=== PATIENT | male | born 1955 | race American Indian/Alaskan Native ===

== ENCOUNTER 2018-09-18 01:28 | Emergency (ER) | payer OTHER ==
[2018-09-18] MEDS ORDERED: NACL 0.9% 1000 ML 1,000 ML IV ONE (01:46)
--- NOTE | 2018-09-18 01:51 | Emergency Department Report ---
ED Syncope HPI - General Chief Complaint: Alcohol Stated Complaint: ETOH Time Seen by Provider: 09/18/18 01:45 - History of Present Illness Initial Comments: 63-year-old male with history of lupus presents to the ED following syncopal episode while at a nightclub. Patient accompanied to the ER by his friend who was with him. States patient had 4 drinks tonight, one beer, one [place] and cranberry juice, and two drinks called [employer]. Friend states they were about to leave the club, when he passed out while sitting in the chair. Patient's friend states patient slid onto the floor, did not hit his head. Friends state patient was unresponsive, but breathing, immediately afterward, so EMS was called. Patient denies feeling dizzy or lightheaded prior to passing out. Also currently denies headache, chest pain, shortness of breath, nausea, abdominal pain. Precipitating Factors: Negative: nausea, rapid heart beat Context: sitting Loss of Consciousness: brief (seconds) Current Symptoms: back to normal - Related Data Allergies/Adverse Reactions: Allergies No Known Allergies Allergy (Unverified 09/18/18 02:47) ED Review of Systems ROS: Stated complaint: ETOH Other details as noted in HPI Comment: All other systems reviewed and negative Constitutional: denies: fever Respiratory: denies: shortness of breath Cardiovascular: denies: chest pain Gastrointestinal: denies: abdominal pain, vomiting Neurological: denies: headache ED Physical Exam - General Limitations: Altered Mental Status General appearance: alert, in no apparent distress, appears intoxicated - Head Head exam: Present: atraumatic, normocephalic - Eye Eye exam: Present: normal appearance, PERRL, EOMI - ENT ENT exam: Present: mucous membranes moist - Neck Neck exam: Present: normal inspection - Respiratory Respiratory exam: Present: normal lung sounds bilaterally. Absent: respiratory distress - Cardiovascular Cardiovascular Exam: Present: regular rate, normal rhythm - GI/Abdominal GI/Abdominal exam: Present: soft. Absent: distended, tenderness - Extremities Exam Extremities exam: Present: normal inspection - Neurological Exam Neurological exam: Present: alert, oriented X3, CN II-XII intact. Absent: motor sensory deficit - Psychiatric Psychiatric exam: Present: normal affect, normal mood - Skin Skin exam: Present: warm, dry, intact, normal color ED Course Vital Signs 09/18/18 09/18/1819 01:40 01:44 01:46 Temperature 97.9 F Pulse Rate 87 90 Respiratory 20 24 Rate Blood Pressure 128/53 Blood Pressure 119/53 [Right] O2 Sat by Pulse 18 L 96 94 Oximetry 09/18/18 09/18/18 09/18/18 02:00 02:18 02:30 Temperature Pulse Rate 92 H 95 H 100 H Respiratory 26 H 26 H 16 Rate Blood Pressure 119/53 119/53 112/55 Blood Pressure [Right] O2 Sat by Pulse 95 90 98 Oximetry 09/18/18 09/18/18 09/18/18 02:46 03:00 03:16 Temperature Pulse Rate 98 H 95 H 92 H Respiratory 15 26 H 21 Rate Blood Pressure 109/49 109/49 119/53 Blood Pressure [Right] O2 Sat by Pulse 97 100 Oximetry 09/18/18 09/18/18 09/18/18 03:30 03:46 04:00 Temperature Pulse Rate 91 H 87 91 H Respiratory 20 18 19 Rate Blood Pressure 119/56 119/56 123/61 Blood Pressure [Right] O2 Sat by Pulse 100 91 100 Oximetry 09/18/18 09/18/18 09/18/18 04:16 04:30 04:45 Temperature Pulse Rate 90 95 H 111 H Respiratory 20 12 16 Rate Blood Pressure 119/56 113/58 113/58 Blood Pressure [Right] O2 Sat by Pulse 100 100 Oximetry 09/18/18 09/18/18 05:00 05:16 Temperature Pulse Rate 92 H 92 H Respiratory 22 19 Rate Blood Pressure 115/56 113/58 Blood Pressure [Right] O2 Sat by Pulse 96 95 Oximetry - Reevaluation(s) Reevaluation #1: 09/18/18 05:22 Pt feeling fine. Pt has someone here at bedside to take hime home. Will d/c now. ED Medical Decision Making - Lab Data Result diagrams: 09/18/18 02:03 09/18/18 02:03 - EKG Data -: EKG Interpreted by Me EKG shows normal: sinus rhythm, axis, intervals, QRS complexes, ST-T waves Rate: normal - EKG Data Interpretation: no acute changes - Radiology Data Radiology results: report reviewed, image reviewed - Medical Decision Making 61-year-old male presents ED following a syncopal episode. Patient is intoxicated, with alcohol level 260. Workup unremarkable including a CT head, EKG, labs. Likely syncopal episodes due to intoxication. Patient is awake and alert, answers questions appropriately. Will discharge patient into care of friend who is here to pick him up. Outpatient follow-up advised. Return precautions given. - Differential Diagnosis dehydration, intoxication, arrythmia, intracranial abnormality Critical care attestation.: If time is entered above; I have spent that time in minutes in the direct care of this critically ill patient, excluding procedure time. ED Disposition Clinical Impression: Alcohol intoxication, Syncope Disposition: DC-01 TO HOME OR SELFCARE Is pt being admited?: No Condition: Stable Instructions: Syncope (ED) Referrals: FERNANDEZ VALE MD [Primary Care Provider] - 3-5 Days Time of Disposition: 05:23
[2018-09-18 02:20] LABS: Basophils % (Auto) 0.5 % (0.0-1.8); Eosinophils # (Auto) 0.1 K/mm3 (0.0-0.4); Eosinophils % (Auto) 3.8 % (0.0-4.3); Hemoglobin 13.1 gm/dl (11.8-15.2); Lymphocytes # (Auto) 1.8 K/mm3 (1.2-5.4); Lymphocytes % (Auto) 45.5 % (13.4-35.0); Mean Corpuscular HGB Conc 34 % (32-34); Mean Corpuscular Volume 95 fl (84-94); Monocytes # (Auto) 0.4 K/mm3 (0.0-0.8); Monocytes % (Auto) 9.9 % (0.0-7.3); Platelet Count 163 K/mm3 (140-440); Red Cell Distribution Width 15.9 % (13.2-15.2)
[2018-09-18 02:40] LABS: Calcium 9.4 mg/dL (8.4-10.2)
--- NOTE | 2018-09-18 03:22 | Cat Scan Report ---
PROCEDURE: CT HEAD/BRAIN WO CON TECHNIQUE: Computerized tomography of the head was performed without contrast material. CT DOSE LENGTH PRODUCT: mGycm HISTORY: syncope COMPARISONS: None . FINDINGS: Skull and scalp: Normal . Paranasal sinuses: Normal . Ventricles and subarachnoid spaces: Normal . Cerebrum: No evidence of hemorrhage, acute infarction or mass . 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 There is 2.5 cm low-density area in the left occipital lobe suggestin g old infarct. Cerebellum and brainstem: There is a 2 cm hypodense area in the right cerebellar hemisphere suggesti ng an old lacunar infarct defect. There is no hemorrhage, mass effect or midline shift. . Vasculature: Normal . IMPRESSION: There is suspected old infarct effects in the left caudate nucleus, left occipital lobe and right cerebellar hemisphere. There is no hemorrhage, edema, mass, mass effect or midline shift. . This document is electronically signed by Yayo Christensen MD., September 18 2018 03:20:18 AM ET
[2018-09-18 05:22] VITALS: BP 113/58
== END 2018-09-18 06:02 | disposition home or self-care (01) ==
LOC: ED 01:28
DX: F10.120 Alcohol abuse with intoxication, uncomplicated (principal); R55 Syncope and collapse
CPT/HCPCS: 36415; 70450; 80048; 84484; 85025; 93005; 93010; 96360; 99284; G0480; J7030; 80320